=== PATIENT | male | born 1990 | race Two or more races ===

== ENCOUNTER 2020-06-21 03:03 | Emergency (ER) | payer OTHER ==
[2020-06-21 04:22] LABS: HEMOGLOBIN 14.3 gm/dl (14.0-17.5); RED BLOOD COUNT 4.8 M/UL (4.20-5.50); WHITE BLOOD COUNT 14.7 K/UL (4.5-11.0)
[2020-06-21 04:35] LABS: BUN/CREATININE RATIO 13 (0-10)
[2020-06-21] MEDS ORDERED: ZOFRAN ODT 4 MG4 MG GT (07:32)
== END 2020-06-21 10:00 | disposition home or self-care (01) ==
LOC: ER1 03:03
PROVIDERS: Family Medicine
DX: R10.9 Unspecified abdominal pain (principal); F14.10 Cocaine abuse, uncomplicated
CPT/HCPCS: 80053; 80307; 81001; 83605; 83690; 85025; 85610; 96365; 96366; 96376; 99284; G0480; J2060; J3411; J3475; J7030; Q9967

== ENCOUNTER 2020-11-05 23:58 | Emergency (ER) | payer OTHER ==
[~2020-11-05 23:58] MED LIST: ZOFRAN ODT 4 MG4 MG GT
[2020-11-06 03:17] LABS: HEMOGLOBIN 16.3 gm/dl (14.0-17.5); RED BLOOD COUNT 5.35 M/UL (4.20-5.50); WHITE BLOOD COUNT 7.4 K/UL (4.5-11.0)
[2020-11-06 03:41] LABS: BUN/CREATININE RATIO 21 (0-10)
[2020-11-06] MEDS ORDERED: OMEPRAZOLE40 MG PO (05:40)
== END 2020-11-06 05:00 | disposition home or self-care (01) ==
LOC: ER1 23:58
PROVIDERS: Physician Assistant
DX: R10.9 Unspecified abdominal pain (principal); R11.2 Nausea with vomiting, unspecified; F10.10 Alcohol abuse, uncomplicated; Y90.9 Presence of alcohol in blood, level not specified
CPT/HCPCS: 71045; 80053; 82150; 83690; 85025; 86850; 86900; 86901; 93005; 96374; 96375; 99284; G0480; J2405; Q9967